=== PATIENT | female | born 1940 | race Caucasian/White ===

== ENCOUNTER 2018-05-22 08:31 | Outpatient (CLI) | payer BC | END 2018-05-22 08:32 | disposition home or self-care (01) | LOC: BICMAMMO 08:31 | PROVIDERS: ATTEND Obstetrics & Gynecology | DX: Z12.31 Encounter for screening mammogram for malignant neoplasm of breast (principal); R92.1 Mammographic calcification found on diagnostic imaging of breast | CPT/HCPCS: 77063; 77067 ==

== ENCOUNTER 2018-10-14 12:30 | Emergency (ER) | payer BC ==
[2018-10-14] MEDS ORDERED: methylPREDNISolone Sod Succ/PF 125 MG/2 ML VIAL ONE (12:38)
[2018-10-14] MEDS ORDERED: diphenhydrAMINE 50 MG/ML VIAL ONE (12:38)
[2018-10-14] MEDS ORDERED: Water For Inject, Bacteriostat 30 ML ONE (12:38)
[2018-10-14] MEDS ORDERED: Famotidine/PF 20 mg/2ml Vial ONE (12:38)
[2018-10-14] MEDS ORDERED: Ondansetron PF 4 MG/2 ML Vial ONE (14:16)
== END 2018-10-14 15:42 | disposition home or self-care (01) ==
LOC: SCSER 12:30
DX: L50.0 Allergic urticaria (principal); E03.9 Hypothyroidism, unspecified; K21.9 Gastro-esophageal reflux disease without esophagitis; E78.5 Hyperlipidemia, unspecified; M19.90 Unspecified osteoarthritis, unspecified site; Z79.899 Other long term (current) drug therapy; Z79.82 Long term (current) use of aspirin
CPT/HCPCS: 87086; 96361; 96374; 96375; J1200; J2405; J2930; S0028

== ENCOUNTER 2019-05-26 07:55 | Outpatient (CLI) | payer BC ==
--- NOTE | 2019-05-26 08:32 | MMO ---
Bilateral MAMMO Bilat Screen [facility]. CLINICAL HISTORY: Patient is 79 years old and is seen for screening. The patient has no family history of breast cancer. The patient has no personal history of cancer. The patient has a history of left Excisional Biopsy in 1991 - benign. VIEWS: The views performed were: bilateral craniocaudal with tomosynthesis and bilateral mediolateral oblique with tomosynthesis. FILMS COMPARED: The present examination has been compared to prior imaging studies performed at [facility] on 04/13/2015, 04/16/2016, 04/22/2017 and 05/22/2018. MAMMOGRAM FINDINGS: The breasts are heterogeneously dense, which could obscure a lesion on mammography. Finding 1: There are stable benign appearing calcifications seen in both breasts. Finding 2: There is a stable mass seen in the right breast at 6 o'clock. There are no suspicious masses, suspicious calcifications, or new areas of architectural distortion. IMPRESSION: THERE IS NO MAMMOGRAPHIC EVIDENCE OF MALIGNANCY. A ROUTINE FOLLOW-UP MAMMOGRAM IN 1 YEAR IS RECOMMENDED. THE RESULTS OF THIS EXAM WERE SENT TO THE PATIENT. ACR BI-RADS Category 2 - Benign finding MAMMOGRAPHY NOTE: 1. A negative mammogram report should not delay a biopsy if a dominant of clinically suspicious mass is present. 2. Approximately 10% to 15% of breast cancers are not detected by mammography. 3. Adenosis and dense breasts may obscure an underlying neoplasm. Reported by: CRISTIAN SERRANO MD Electonically Signed: [id number]
--- NOTE | 2019-05-26 08:59 | BD ---
EXAM: DEXA bone density examination HISTORY: 79-year-old postmenopausal female for screening COMPARISON: None FINDINGS: L1--bone mineral density 1.053 g/sq cm; T score 0.6 L2--bone mineral density 1.084 g/sq cm; T score 0.5 L3--bone mineral density 1.083 g/sq cm; T score 0.0 L4--bone mineral density 1.181 g/sq cm; T score 1.1 Total L1-L4--bone mineral density 1.103 g/sq cm; T score 0.5 Left femoral neck--bone mineral density0.862; T score 0.1 Total proximal left femur--bone mineral density 1.009; T score 0.5 IMPRESSION: Normal bone mineral density.
== END 2019-05-26 07:56 | disposition home or self-care (01) ==
LOC: BICMAMMO 07:55
PROVIDERS: ATTEND Obstetrics & Gynecology
DX: Z12.31 Encounter for screening mammogram for malignant neoplasm of breast (principal); Z13.820 Encounter for screening for osteoporosis; M81.0 Age-related osteoporosis without current pathological fracture; M85.80 Other specified disorders of bone density and structure, unspecified site; Z79.890 Hormone replacement therapy
CPT/HCPCS: 77063; 77067; 77080

== ENCOUNTER 2022-07-30 13:57 | Outpatient (CLI) | payer BC | END 2022-07-30 13:58 | disposition home or self-care (01) | LOC: BICRAD 13:57 | PROVIDERS: ATTEND Internal Medicine | DX: S80.12XA Contusion of left lower leg, initial encounter (principal); M79.89 Other specified soft tissue disorders ==

== ENCOUNTER 2024-05-20 10:12 | Outpatient (CLI) | payer BC | END 2024-05-20 10:13 | disposition home or self-care (01) | LOC: BICMAMMO 10:12 | PROVIDERS: ATTEND Internal Medicine | DX: Z13.820 Encounter for screening for osteoporosis (principal); S52.514A Nondisplaced fracture of right radial styloid process, initial encounter for closed fracture; Z78.0 Asymptomatic menopausal state | CPT/HCPCS: 77080 ==

== ENCOUNTER 2024-06-24 14:17 | Outpatient (CLI) | payer BC | END 2024-06-24 14:18 | disposition home or self-care (01) | LOC: SCSRAD 14:17 | PROVIDERS: ATTEND Physician Assistant | DX: S89.92XA Unspecified injury of left lower leg, initial encounter (principal); W19.XXXA Unspecified fall, initial encounter ==